=== PATIENT | male | born 1945 | race Caucasian/White ===

== ENCOUNTER → 2017-02-13 | Outpatient (CLI) | payer MEDICARE, OTHER ==
[~2017-02-13] MED LIST: RT-ALBUTEROL SULF 2.5 MG/3 ML PRE-MIX VIAL IH ONE
--- NOTE | 2017-02-13 16:51 | Diagnostic Imaging Report ---
PROCEDURE: CT chest without contrast. TECHNIQUE: Multiple contiguous axial images were obtained through the chest without the use of intravenous contrast. INDICATION: COPD. FINDINGS: The lungs demonstrate no significant consolidation, mass or suspicious nodule seen. No emphysema changes. No bronchiectasis and no evidence of air-trapping. The heart size is mildly enlarged. There are three pacer leads seen with the pacemaker in the anterior chest wall. There is no mediastinal mass or mediastinal lymphadenopathy. The hilar vessels are not opacified with no obvious hilar mass seen. There is no axillary lymphadenopathy. The fluid attenuation lesion anterior to the left shoulder is seen, could be related to subcoracoid bursa distention. The thoracic aorta is normal in caliber. No pericardial or pleural effusion. The liver demonstrates lobulated contour which is suggestive of underlying chronic liver disease or cirrhosis. The spleen is mildly enlarged. It is 14.8 cm in AP dimension. There is suggestion of mildly prominent upper abdominal varices. The osseous structures demonstrate degenerative changes. IMPRESSION: 1. Lobulated contour of the liver suggestive of chronic liver disease or cirrhosis. There is also splenomegaly and suggestion of mild upper abdominal varices. Correlate clinically. 2. Unremarkable CT appearance of the lungs. Dictated by: Dictated on workstation # [id number]
== END ==
LOC: RAD 11:50
PROVIDERS: ATTEND Nurse Practitioner Family
DX: R16.1 Splenomegaly, not elsewhere classified (principal); K76.9 Liver disease, unspecified; J44.9 Chronic obstructive pulmonary disease, unspecified; J45.909 Unspecified asthma, uncomplicated; J42 Unspecified chronic bronchitis
CPT/HCPCS: 71250; 94060; 94640; 94726; 94729

== ENCOUNTER → 2018-08-26 | Outpatient (CLI) | payer MEDICARE, OTHER ==
[2018-08-26 16:04] LABS: ABG BASE EXCESS 1.2 MMOL/L (-2.5-2.5); ABG OXYGEN SATURATION 95 % (94-100); ABG PCO2 37 MMHG (35-45); ABG PH 7.45 (7.37-7.43); ABG PO2 65 MMHG (79-93); ABG TCO2 26.4 MMOL/L (21.0-31.0)
[2018-08-26 16:06] LABS: ALLENS TEST YES-POS; INSPIRED O2 RA; PATIENT TEMP 96.4; VENTILATOR NO
== END ==
LOC: RT 15:26
PROVIDERS: ATTEND Internal Medicine Critical Care Medicine
DX: J30.9 Allergic rhinitis, unspecified (principal); R05 Cough; J44.9 Chronic obstructive pulmonary disease, unspecified; E66.9 Obesity, unspecified
CPT/HCPCS: 82805

== ENCOUNTER 2018-10-06 20:26 | Outpatient (CLI) | payer MEDICARE, OTHER | END 2018-10-07 07:32 | disposition home or self-care (01) | LOC: SLEEP 20:26 | PROVIDERS: ATTEND Internal Medicine Critical Care Medicine | DX: G47.33 Obstructive sleep apnea (adult) (pediatric) (principal); J44.9 Chronic obstructive pulmonary disease, unspecified | CPT/HCPCS: 95810 ==